=== PATIENT | male | born 1995 | race Two or more races ===

== ENCOUNTER 2019-04-06 12:30 | Emergency (ER) | payer SELFPAY ==
[~2019-04-06] VITALS: Ht 177.8 cm; Wt 90.7 kg
[2019-04-06] MEDS ORDERED: DEXAMETHASONE SOD PHOS 4 MG/ML VIAL IVP STA (12:52)
[2019-04-06] MEDS ORDERED: IV NORMAL SALINE 1000ML BAG 1,000 ML IV ONE (13:00)
--- NOTE | 2019-04-06 13:17 | PHYS DOC ---
Past Medical History Past Medical History: No Pertinent History Past Surgical History: No Surgical History Alcohol Use: None Drug Use: None Adult General Chief Complaint Chief Complaint: SORE THROAT HPI HPI Patient is a 23 year old male who presents with sore throat since Saturday. The patient denies any runny nose, congestion, cough. The patient has been running a low fever. He rates his pain as 8 out of 10 in severity and sharp. The patient is unable to fully open his mouth is also having left-sided neck pain. Review of Systems Review of Systems Constitutional: Reports fever or chills [] Eyes: Denies change in visual acuity, redness, or eye pain [] HENT: Denies nasal congestion or runny nose but reports sore throat. Respiratory: Denies cough or shortness of breath [] Cardiovascular: No additional information not addressed in HPI [] GI: Denies abdominal pain, nausea, vomiting, bloody stools or diarrhea [] : Denies dysuria or hematuria [] Musculoskeletal: Denies back pain or joint pain [] Integument: Denies rash or skin lesions [] Neurologic: Denies headache, focal weakness or sensory changes [] Endocrine: Denies polyuria or polydipsia [] Complete systems were reviewed and found to be within normal limits, except as documented in this note. Current Medications Current Medications Current Medications Medications (Trade) Dose Ordered Sig/Michelle Start Time Stop Time Status Last Admin Dose Admin Clindamycin Phosphate 50 ml @ 100 mls/hr 1X ONCE 04/06/19 15:15 04/06/19 15:44 DC 04/06/19 15:10 100 MLS/HR Dexamethasone Sodium Phosphate (Decadron) 10 mg 1X STAT 04/06/19 12:52 04/06/19 12:56 DC 04/06/19 15:09 10 MG Iohexol (Omnipaque 300 Mg/ml) 70 ml 1X ONCE 04/06/19 13:45 04/06/19 13:46 DC 04/06/19 13:54 70 ML Morphine Sulfate (Morphine Sulfate) 5 mg 1X STAT 04/06/19 15:02 04/06/19 15:04 DC 04/06/19 15:09 5 MG Ondansetron HCl (Zofran) 4 mg 1X ONCE 04/06/19 13:30 04/06/19 13:31 DC 04/06/19 15:09 4 MG Sodium Chloride 1,000 ml @ 1,000 mls/hr 1X ONCE 04/06/19 13:00 04/06/19 13:59 DC 04/06/19 15:08 1,000 MLS/HR Allergies Allergies Allergies Coded Allergies Type Severity Reaction Last Updated Verified No Known Drug Allergies 11/23/13 No Physical Exam Physical Exam Constitutional: Well developed, well nourished, no acute distress, non-toxic appearance. [] HENT: Normocephalic, atraumatic, bilateral external ears normal, unable to visualize as patient is unable to fully open mouth Eyes: PERRLA, EOMI, conjunctiva normal, no discharge. [] Neck: Normal range of motion, tenderness to left side of neck. Cardiovascular:Heart rate regular rhythm, no murmur [] Lungs & Thorax: Bilateral breath sounds clear to auscultation [] Skin: Warm, dry, no erythema, no rash. [] Neurologic: Alert and oriented X 3, normal motor function, normal sensory funct ion, no focal deficits noted. [] Psychologic: Affect normal, judgement normal, mood normal. [] Current Patient Data Vital Signs Vital Signs Date Time Temp Pulse Resp B/P (MAP) Pulse Ox O2 Delivery O2 Flow Rate FiO2 04/06/19 12:56 99.6 92 16 167/106 (126) 97 Room Air 99.6 Lab Values Laboratory Tests Test 04/06/19 13:10 White Blood Count 20.5 x10^3/uL (4.0-11.0) H Red Blood Count 5.37 x10^6/uL (4.30-5.70) Hemoglobin 14.9 g/dL (13.0-17.5) Hematocrit 45.7 % (39.0-53.0) Mean Corpuscular Volume 85 fL (79-100) Mean Corpuscular Hemoglobin 28 pg (25-35) Mean Corpuscular Hemoglobin Concent 33 g/dL (31-37) Red Cell Distribution Width 14.3 % (11.5-14.5) Platelet Count 294 x10^3/uL (140-400) Neutrophils (%) (Auto) 78 % (31-73) H Lymphocytes (%) (Auto) 13 % (24-48) L Monocytes (%) (Auto) 8 % (0-9) Eosinophils (%) (Auto) 0 % (0-3) Basophils (%) (Auto) 1 % (0-3) Neutrophils # (Auto) 16.1 x10^3/uL (1.8-7.7) H Lymphocytes # (Auto) 2.7 x10^3/uL (1.0-4.8) Monocytes # (Auto) 1.6 x10^3/uL (0.0-1.1) H Eosinophils # (Auto) 0.0 x10^3/uL (0.0-0.7) Basophils # (Auto) 0.1 x10^3/uL (0.0-0.2) Segmented Neutrophils % 72 % (35-66) H Band Neutrophils % 6 % (0-9) Lymphocytes % 11 % (24-48) L Monocytes % 10 % (0-10) Eosinophils % 1 % (0-5) Platelet Estimate Adequate (ADEQUATE) Sodium Level 141 mmol/L (136-145) Potassium Level 3.4 mmol/L (3.5-5.1) L Chloride Level 104 mmol/L (98-107) Carbon Dioxide Level 26 mmol/L (21-32) Anion Gap 11 (6-14) Blood Urea Nitrogen 9 mg/dL (8-26) Creatinine 0.7 mg/dL (0.7-1.3) Estimated GFR (Cockcroft-Gault) 141.0 BUN/Creatinine Ratio 13 (6-20) Glucose Level 105 mg/dL (70-99) H Calcium Level 9.2 mg/dL (8.5-10.1) Total Bilirubin 0.8 mg/dL (0.2-1.0) Aspartate Amino Transferase (AST) 12 U/L (15-37) L Alanine Aminotransferase (ALT) 17 U/L (16-63) Alkaline Phosphatase 78 U/L (46-116) C-Reactive Protein, Quantitative 177.4 mg/L (0-3.3) H Total Protein 8.8 g/dL (6.4-8.2) H Albumin 3.7 g/dL (3.4-5.0) Albumin/Globulin Ratio 0.7 (1.0-1.7) L Laboratory Tests 04/06/19 13:10 Laboratory Tests 04/06/19 13:10 EKG EKG [] Radiology/Procedures Radiology/Procedures [][facility] [address] [place] [address] IMAGING REPORT Signed PATIENT: JORDAN WHITNEY ACCOUNT: [id number] : 1995 LOCATION: ER AGE: 23 SEX: M EXAM STATUS: REG ER ORD. PHYSICIAN: LAN BLAKE APRN REASON: sore throat, unable to fully open mouth, neck pain, peritonsiller absces s PROCEDURE: CT SOFT TISSUE NECK W/CONTRAST CT SOFT TISSUE NECK W/CONTRAST History: Sore throat. Neck pain. Unable to fully open mouth. Technique: CT imaging was performed of the neck soft tissues with contrast. Coronal and sagittal reconstructions were performed. Exposure: One or more of the following individualized dose reduction techniques were utilized for this examination: 1. Automated exposure control 2. Adjustment of the mA and/or kV according to patient size 3. Use of iterative reconstruction technique. Comparison: None Findings: Enlarged bilateral tonsils, left greater than right. Left peritonsillar hypodense collection measures 3.6 cm craniocaudal by 2.3 cm anterior posterior by 3.1 cm transverse (series 2 image #57 and series 4 image #29). Several mildly prominent left deep cervical chain lymph nodes, likely reactive. Normal appearance of the bilateral submandibular and parotid glands. Unremarkable thyroid gland. Imaged lung apices are unremarkable. Imaged paranasal sinuses and mastoid air cells are clear. Imaged orbits and intracranial contents are unremarkable. Large left mandibular first and second molar periapical lucency. Right second molar mandibular carious dentition with periapical lucency. Additional periodontal disease. Impression: 1. Tonsillitis with left peritonsillar abscess. 2. Multifocal carious dentition and periodontal disease. Electronically signed by: Ton Winkler DO (04/06/2019 2:29 PM) [id number] DICTATED and SIGNED BY: TON WINKLER DO DATE: 04/06/19 1429 Course & Med Decision Making Course & Med Decision Making Pertinent Labs and Imaging studies reviewed. (See chart for details) Concern for peritonsillar abscess, will get CT neck, labs, and supportive care. Ct neck shows: Impression: 1. Tonsillitis with left peritonsillar abscess. 3.6 cm craniocaudal by 2.3 cm anterior posterior by 3.1 cm transverse 2. Multifocal carious dentition and periodontal disease. Labs shows WBC: 20.5 CRP: 177.4 Discussed with transfer center. Will transfer patient. Accepting Physician is Dr. Causey, ENT at 1554. Dragon Disclaimer Dragon Disclaimer This electronic medical record was generated, in whole or in part, using a voice recognition dictation system. Departure Departure Impression: Primary Impression: Peritonsillar abscess Disposition: 05 TRANSFER OTHER () Condition: STABLE Referrals: NO PCP (PCP) LAN BLAKE APRN Apr 06, 2019 13:17
[2019-04-06 13:22] LABS: BASO # 0.1 x10^3/uL (0.0-0.2); BASO % 1 % (0-3); EOS % 0 % (0-3); HEMATOCRIT 45.7 % (39.0-53.0); HEMOGLOBIN 14.9 g/dL (13.0-17.5); LYMPH # 2.7 x10^3/uL (1.0-4.8); LYMPH % 13 % (24-48); MEAN CORPUSCULAR HEMOGLOBIN 28 pg (25-35); MEAN CORPUSCULAR HGB CONC 33 g/dL (31-37); MEAN CORPUSCULAR VOLUME 85 fL (79-100); MONO # 1.6 x10^3/uL (0.0-1.1); MONO % 8 % (0-9); NEUT # 16.1 x10^3/uL (1.8-7.7); NEUT % 78 % (31-73); PLATELET COUNT 294 x10^3/uL (140-400); RED BLOOD COUNT 5.37 x10^6/uL (4.30-5.70); RED CELL DISTRIBUTION WIDTH 14.3 % (11.5-14.5); WHITE BLOOD COUNT 20.5 x10^3/uL (4.0-11.0)
[2019-04-06 13:29] LABS: CALCIUM 9.2 mg/dL (8.5-10.1); CREATININE 0.7 mg/dL (0.7-1.3); POTASSIUM 3.4 mmol/L (3.5-5.1)
[2019-04-06] MEDS ORDERED: ONDANSETRON PF 4 MG/2 ML VIAL. IV ONE (13:30)
[2019-04-06 13:36] LABS: ALBUMIN 3.7 g/dL (3.4-5.0); ALBUMIN/GLOBULIN RATIO 0.7 (1.0-1.7); C-REACTIVE PROTEIN 177.4 mg/L (0-3.3); TOTAL BILIRUBIN 0.8 mg/dL (0.2-1.0); TOTAL PROTEIN 8.8 g/dL (6.4-8.2)
[2019-04-06] MEDS ORDERED: IOHEXOL 300 MG/ML 100ML VIAL. IV ONE (13:45)
--- NOTE | 2019-04-06 14:32 | RAD ---
CT SOFT TISSUE NECK W/CONTRAST History: Sore throat. Neck pain. Unable to fully open mouth. Technique: CT imaging was performed of the neck soft tissues with contrast. Coronal and sagittal reconstructions were performed. Exposure: One or more of the following individualized dose reduction techniques were utilized for this examination: 1. Automated exposure control 2. Adjustment of the mA and/or kV according to patient size 3. Use of iterative reconstruction technique. Comparison: None Findings: Enlarged bilateral tonsils, left greater than right. Left peritonsillar hypodense collection measures 3.6 cm craniocaudal by 2.3 cm anterior posterior by 3.1 cm transverse (series 2 image #57 and series 4 image #29). Several mildly prominent left deep cervical chain lymph nodes, likely reactive. Normal appearance of the bilateral submandibular and parotid glands. Unremarkable thyroid gland. Imaged lung apices are unremarkable. Imaged paranasal sinuses and mastoid air cells are clear. Imaged orbits and intracranial contents are unremarkable. Large left mandibular first and second molar periapical lucency. Right second molar mandibular carious dentition with periapical lucency. Additional periodontal disease. Impression: 1. Tonsillitis with left peritonsillar abscess. 2. Multifocal carious dentition and periodontal disease. Electronically signed by: Ton Winkler DO (04/06/2019 2:29 PM) [id number]
[2019-04-06] MEDS ORDERED: MORPHINE SULFATE 10 MG/ML VIAL. IV STA (15:02)
[2019-04-06] MEDS ORDERED: CLINDAMYCIN 600MG PREMIX 50 ML IV ONE (15:15)
[2019-04-06 15:26] LABS: % BANDS 6 % (0-9); % EOS 1 % (0-5); % LYMPHS 11 % (24-48); % MONOS 10 % (0-10); % SEGS 72 % (35-66)
[2019-04-06 15:27] LABS: PLT ESTIMATE ADEQUATE (ADEQUATE)
[2019-04-06 16:00] VITALS: BP 122/65
== END 2019-04-06 16:02 | disposition home or self-care (01) ==
LOC: ER 12:30
DX: J36 Peritonsillar abscess (principal); K02.9 Dental caries, unspecified; R50.9 Fever, unspecified; Z79.899 Other long term (current) drug therapy
CPT/HCPCS: 36415; 70491; 80053; 85007; 85025; 86140; 96365; 96375; 99285; J1100; J2270; J2405; J3490; J7030; Q9967